=== PATIENT | female | born 1970 | race Caucasian/White ===

== ENCOUNTER 2016-09-26 07:53 | Emergency (ER) | payer SELFPAY ==
[~2016-09-26] VITALS: Ht 154.9 cm; Wt 59.0 kg
[~2016-09-26 07:53] MED LIST: IPRAAER5; LORA-655; TRAMADOL
[2016-09-26 08:08] VITALS: BP 118/83
== END 2016-09-26 09:05 | disposition home or self-care (01) ==
LOC: ER 07:53
DX: M18.9 Osteoarthritis of first carpometacarpal joint, unspecified (principal); J45.909 Unspecified asthma, uncomplicated; F17.200 Nicotine dependence, unspecified, uncomplicated
CPT/HCPCS: 73110; 73130

== ENCOUNTER 2017-01-19 11:21 | Observation (INO) | payer MEDICAID ==
[~2017-01-19] VITALS: Ht 154.9 cm; Wt 56.7 kg
[2017-01-19 12:10] LABS: Basophils # (auto) 0 uL; Basophils % (auto) 0.8 % (0.0-2.0); Eosinophils # (auto) 0.1 uL; Eosinophils % (auto) 1.1 % (0.0-7.0); Hematocrit 43.9 % (36.0-46.0); Hemoglobin 15.1 g/dL (12.2-16.2); Lymphocytes # (auto) 1.9 uL; Lymphocytes % (auto) 30.2 % (10.0-50.0); Mean Corpuscular Hemoglobin 32.2 pg (28.0-32.0); Mean Corpuscular Hgb Conc. 34.3 g/dL (32.0-36.0); Mean Platelet Volume 7.3 fL (6.9-10.8); Monocytes # (auto) 0.5 uL; Monocytes % (auto) 8.1 % (0.0-12.0); Neutrophils # (auto) 3.7 uL; Neutrophils % (auto) 59.8 % (37.0-80.0); Nucleated Red Blood Cells % 0.1 %; Platelet Count (auto) 359 10^3/uL (140-450); Red Cell Distribution Width 13.1 % (11.8-14.3); White Blood Cell 6.3 10^3/uL (4.4-10.8)
[2017-01-19 12:34] LABS: B-Type Natriuretic Peptide 10.07 pg/mL (0-100); Temperature: 23.1 C (20.0-25.0)
[2017-01-19 12:37] LABS: Alkaline Phosphatase 66 U/L (45-117); Anion Gap 8 (5-15); Aspartate Aminotransferase 19 U/L (15-37); BUN/Creatinine Ratio 18.6; Bilirubin, Total 0.4 mg/dL (0.2-1.0); Blood Urea Nitrogen 13 mg/dL (7-18); Calcium 9.3 mg/dL (8.5-10.1); Carbon Dioxide 28 mmol/L (21-32); Chloride 102 mmol/L (98-107); GFR African American 115 mL/min; GFR Non-African American 95 mL/min; Glucose 93 mg/dL (74-106); Magnesium 2.1 mg/dL (1.6-2.6); Potassium 4.3 mmol/L (3.5-5.1); Sodium 138 mmol/L (136-145); Total Protein 8.5 g/dL (6.4-8.2)
[2017-01-19] MEDS ORDERED: ASPirin 81 mg TAB PO ONE (14:45)
[2017-01-19 15:41] LABS: Urine Bilirubin Negative (Negative); Urine Blood TRACE /uL (Negative); Urine Color Yellow (Yellow); Urine Glucose Normal (Normal); Urine Ketone Negative (Negative); Urine Mucus FEW (None Seen); Urine Nitrite Negative (Negative); Urine RBC 4 /hpf (0 - 4); Urine Squamous Epithelial Cell MOD /hpf (<5); Urine Urobilinogen Normal (Negative); Urine pH 5.5 (5.0-8.0)
[2017-01-19] MEDS ORDERED: KETOROLAC TROMETH 30 MG/ML 1ML VIAL IV ONE (15:45)
[2017-01-19 17:30] VITALS: BP 123/88
== END 2017-01-19 19:33 | disposition home or self-care (01) | DRG 203 ==
LOC: ER 11:21 → OVERFLOW 14:34 → ER 19:33
PROVIDERS: ADMIT Family Medicine; ATTEND Family Medicine
DX: R07.89 Other chest pain (principal); F32.9 Major depressive disorder, single episode, unspecified; R00.2 Palpitations; F41.9 Anxiety disorder, unspecified; G89.29 Other chronic pain; M54.2 Cervicalgia; F17.210 Nicotine dependence, cigarettes, uncomplicated; Z82.49 Family history of ischemic heart disease and other diseases of the circulatory system
CPT/HCPCS: 36415; 71010; 74176; 80053; 80307; 81001; 83735; 83880; 84443; 84484; 85025; 85379; 93005; 96374; 99285; G0378; J1885

== ENCOUNTER 2017-05-25 11:43 | Emergency (ER) | payer SELFPAY ==
[~2017-05-25] VITALS: Ht 157.5 cm; Wt 58.1 kg
[2017-05-25 12:59] VITALS: BP 188/78
== END 2017-05-25 13:45 | disposition home or self-care (01) ==
LOC: ER 11:43
DX: M77.9 Enthesopathy, unspecified (principal); F17.210 Nicotine dependence, cigarettes, uncomplicated; G89.29 Other chronic pain; M54.2 Cervicalgia; Z79.899 Other long term (current) drug therapy; Z76.0 Encounter for issue of repeat prescription
CPT/HCPCS: 73080

== ENCOUNTER 2017-08-02 16:20 | Emergency (ER) | payer SELFPAY ==
[~2017-08-02] VITALS: Ht 157.5 cm; Wt 57.2 kg
[2017-08-02 17:20] VITALS: BP 129/92
== END 2017-08-02 19:31 | disposition home or self-care (01) ==
LOC: ER 16:20
DX: J38.7 Other diseases of larynx (principal); F17.210 Nicotine dependence, cigarettes, uncomplicated
CPT/HCPCS: 70490

== ENCOUNTER 2018-03-26 13:05 | Emergency (ER) | payer SELFPAY ==
[~2018-03-26] VITALS: Ht 157.5 cm; Wt 58.5 kg
[2018-03-26 13:19] VITALS: BP 137/91
== END 2018-03-26 17:52 | disposition home or self-care (01) ==
LOC: ER 13:11
DX: G89.29 Other chronic pain (principal); M25.531 Pain in right wrist; M54.2 Cervicalgia; F41.9 Anxiety disorder, unspecified; F32.9 Major depressive disorder, single episode, unspecified; I10 Essential (primary) hypertension; F17.200 Nicotine dependence, unspecified, uncomplicated; Z79.899 Other long term (current) drug therapy
CPT/HCPCS: 29125; 73090; 73120